=== PATIENT | female | born 2005 ===

== ENCOUNTER 2024-09-02 15:30 | Outpatient (RCR) | payer BC, OTHER, SELFPAY | END 2024-12-22 10:04 | disposition home or self-care (01) | PROVIDERS: Visit Provider Orthopaedic Surgery | DX: M25.562 Pain in left knee (principal); Z98.890 Other specified postprocedural states; M62.81 Muscle weakness (generalized); Z51.89 Encounter for other specified aftercare | CPT/HCPCS: 97110; 97140; 97161 ==